=== PATIENT | male | born 2000 | race Hispanic/Latino ===

== ENCOUNTER → 2024-12-16 18:48 | Outpatient (CLI) | payer SELFPAY ==
--- NOTE | 2024-12-16 18:53 | DI.RAD.S_ITS ---
PROCEDURE: XR FOOT LT MIN 3V INDICATIONS: Rule out fracture left 2nd 3rd toe and metatarsal TECHNIQUE: 3 views of the foot were acquired. COMPARISON: None. FINDINGS: Bones: 2nd and 3rd distal tuft fractures with mild displacement.. No suspicious bony lesions. Soft tissues: No tibiotalar joint effusion. Achilles tendon appears normal. IMPRESSION: 2nd and 3rd distal tuft fractures. Dictated by: Lashanda Wilson M.D. on 12/16/2024 at 19:14 Approved by: Lashanda Wilson M.D. on 12/16/2024 at 19:15
== END ==
LOC: RAD 18:52
PROVIDERS: Referring Provider Chiropractor; Visit Provider Chiropractor
DX: S92.532A Displaced fracture of distal phalanx of left lesser toe(s), initial encounter for closed fracture (principal); S90.122A Contusion of left lesser toe(s) without damage to nail, initial encounter; X58.XXXA Exposure to other specified factors, initial encounter
CPT/HCPCS: 73630

== ENCOUNTER 2025-01-11 19:13 | Emergency (ER) | payer SELFPAY ==
[2025-01-11 19:27] VITALS: BP 148/94; PULSE 69; RESP 16; TEMP 36.4; O2SAT 96; BMI 32.3
[2025-01-11] MEDS: TET,DIPH,PERTUSS(ACELL),VAC/PF 0.5 ML SYRINGE IM (20:23)
--- NOTE | 2025-01-11 20:30 | ED_ITS ---
HPI - Wound/Laceration General Chief Complaint: Wound/Laceration Stated Complaint: Lt hand laceration Time Seen by Provider: 01/11/25 20:24 Source: patient Mode of arrival: Ambulatory History of Present Illness HPI narrative: Patient has a work related injury. Was cutting imitation crab. Accidentally cut the left middle finger at the tip. He is left-handed. He does not want to complete L and I forms. Has 5 mm superficial laceration of the tip of the pad of the middle finger. No injury to the fingernail but it does border the fingernail at the tip. No bony injury seen no foreign body or tendon injury seen. Bloodless field base visualized. Tetanus needs to be updated. Related Data Home Medications ?Medication ?Instructions ?Recorded ?Confirmed No Known Home Medications 12/16/2412/01 Allergies Allergy/AdvReac Type Severity Reaction Status Date / Time No Known Drug Allergies Allergy Unverified 01/11/25 19:27 Review of Systems Review of Systems Narrative: GENERAL: Negative chills, fatigue, malaise, fever, sweats. HEENT: Negative sinus pain, ear pain, sore throat RESPIRATORY: Negative dyspnea, cough CARDIOVASCULAR: Negative chest pain, palpitations GASTROINTESTINAL: Negative vomiting, nausea, abdominal pain : Negative dysuria, frequency, hematuria MUSCULOSKELETAL: Negative muscle or bony pain SKIN: Negative rash, skin lesions, positive skin wound NEUROLOGIC: Negative weakness, numbness ROS Unobtainable: All systems reviewed & are unremarkable except as noted in HPI and below Patient History Social History Smoking Status: Current every day smoker Smoking Status: Current every day smoker tobacco type: cigarettes Exam Narrative Exam Narrative: GENERAL: in no distress, not toxic not dyspneic HEAD: Normocephalic. EYES: Pupils equal round ENT: Mucous membranes moist. EXTREMITIES: No gross deformities. examination of the left middle finger. Small very superficial 5 mm linear laceration at the tip of the finger pad. No nail injury. Light touch intact to finger. Nontender MCP PIP and DP joints. Base visualized no foreign body muscle injury tendon injury or bone exposure. NEURO: AOx4. Clear speech SKIN: Warm and dry PSYCH: Not anxious, is cooperative Initial Vital Signs Initial Vital Signs: Vital Signs Temperature 97.5 F L 01/11/25 19:27 Pulse Rate 69 01/11/25 19:27 Respiratory Rate 16 01/11/25 19:27 Blood Pressure 148/94 H 11/11/25 19:27 Pulse Oximetry 96 01/11/25 19:27 Oxygen Delivery Method Room Air 01/11/25 19:27 Procedures Laceration Repair Laceration 1: Time of procedure: 20:40 Site: other (Left middle finger) Side (If applicable): left Size (cm): 0.5 Description: linear Depth: simple, single layer Pre-repair: wound explored and cleansed with chlorhexadine (Tub soak in normal saline and chlorhexidine) Skin layer closed with: other (Steri-Strips and Dermabond) Course Orders Ordered: Discontinued Medications Diphtheria/Tetanus/Acell Pertussis (Tet,Diph,Pertuss(Acell),Vac/Pf 0.5 Ml Syringe) 0.5 ml IM .ONCE ONE Stop: 01/11/25 20:20 Last Admin: 01/11/25 20:23 Dose: 0.5 ml Documented By: TINA Vital Signs Vital signs: Vital Signs - 8 hr 01/11/25 19:27 Temperature 97.5 F L Pulse Rate 69 Respiratory Rate 16 Blood Pressure 148/94 H Pulse Oximetry 96 Oxygen Delivery Method Room Air MDM - Wound/Laceration MDM Narrative Medical decision making narrative: Patient has a work related injury. Was cutting [employer] crab. Accidentally cut the left middle finger at the tip. He is left-handed. He does not want to complete L and I forms. Has 5 mm superficial laceration of the tip of the pad of the middle finger. No injury to the fingernail but it does border the fingernail at the tip. No bony injury seen no foreign body or tendon injury se en. Bloodless field base visualized. Tetanus needs to be updated. MDM After history and exam, exam is reassuring. Tdap to be given. Dermabond and Steri-Strips to be used for wound closure. No x-ray imaging indicated. Differential considered: Includes but not limited to skin laceration finger laceration retained foreign body Consultations: None indicated Re-evaluations: 8:38 p.m.. Patient tolerated wound closure very well. Wound care instructions provided. He does not want to complete L and I forms. Work note provided. He desires discharge home. Discussion: Appropriate for discharge home. Exam is reassuring. Return precautions reviewed patient. Fingers neurovascularly intact. He desires discharge home. Diagnosis: Finger laceration Discharge Plan Departure Patient Disposition: Home Clinical Impression: Laceration Instructions: DI for Laceration Repair-Skin Closure Strips, DI for Laceration Repair-Skin Glue Activity Restrictions/Additional Instructions: Please keep your finger dry for the next 24 hours. Change the outer bulky dressing daily. You may shower but no soaking of the finger under water. See family doctor or return here for re-evaluation of your finger in the week. Prescriptions: No Action No Known Home Medications Stand Alone Forms: Patient Portal/API, Work Release Note
[2025-01-11 20:52] VITALS: BP 138/85; PULSE 54; RESP 18; O2SAT 99
== END 2025-01-11 20:55 | disposition home or self-care (01) ==
PROVIDERS: Emergency Provider Emergency Medicine
DX: S61.213A Laceration without foreign body of left middle finger without damage to nail, initial encounter (principal); W26.0XXA Contact with knife, initial encounter; Z23 Encounter for immunization
CPT/HCPCS: 12001; 90471; 99283; 90715